=== PATIENT | female | born 1960 | race Caucasian/White ===

== ENCOUNTER 2017-05-14 06:58 | Day surgery (SDC) | payer BC ==
[~2017-05-14 06:58] MED LIST: Sodium Chloride 0.9% 10 ML Syringe FLUSH PRN
[2017-05-14] MEDS ORDERED: HYDROmorphone 2 MG/ML SDV IV ONE (08:00)
[2017-05-14] MEDS ORDERED: Propofol 200 MG/20 ML SDV IV ONE (08:00)
[2017-05-14] MEDS ORDERED: ePHEDrine/Normal Saline 50 MG/5 ML Syringe IV ONE (08:00)
[2017-05-14] MEDS ORDERED: Sugammadex Sodium 200 MG/2 ML VIAL IV ONE (08:00)
[2017-05-14] MEDS ORDERED: Dexamethasone 4 MG/ML 5 ML MDV IVPUSH ONE (08:00)
[2017-05-14] MEDS ORDERED: Ketorolac 30 MG/ML SDV IVPUSH ONE (08:00)
[2017-05-14] MEDS ORDERED: Ondansetron 4 MG/2 ML SDV IVPUSH ONE (08:00)
[2017-05-14] MEDS ORDERED: Rocuronium 50 MG/5 ML Vial IV ONE (08:00)
[2017-05-14] MEDS ORDERED: Scopolamine 1.5 MG Transdermal Patch TOP ONE (08:00)
[2017-05-14] MEDS ORDERED: fentaNYL 100 MCG/2 ML SDV IV ONE (08:00)
[2017-05-14] MEDS ORDERED: Succinylcholine/Normal Saline 200 MG/10 ML Syringe IV ONE (08:00)
[2017-05-14] MEDS ORDERED: Midazolam 1 MG/ML 2 ML SDV IV ONE (08:00)
[2017-05-14] MEDS ORDERED: Lactated Ringers 1,000 ML IV ONE (08:00)
[2017-05-14] MEDS: Lactated Ringers 1,000 ML IV SCH ×2 (08:02→10:09)
--- NOTE | 2017-05-14 08:20 | PCM.HPR ---
H & P Addendum review - H & P Addendum Review Date of Original H & P: 05/11/17 Date Reviewed: 05/14/17 Time Reviewed: 08:00 Patient was examined: No Changes (ok to proceed with lap rizwan)
--- NOTE | 2017-05-14 09:03 | PCM.OPNOTE ---
- General Post-Op/Procedure Note Date of Surgery/Procedure: 05/14/17 Operative Procedure(s): Lap Kristie Findings: none Pre Op Diagnosis: Symptomatic Cholelithiasis Post-Op Diagnosis: same Anesthesia Technique: General ET tube Primary Surgeon: Matt Torres Anesthesia Provider: Levon Mejía Pathology: Gallbladder EBL in mLs: 1 Complications: None Condition: Good
[2017-05-14] MEDS ORDERED: Morphine 2 MG/ML Syringe IVPUSH PRN (09:06)
[2017-05-14] MEDS ORDERED: Acetaminophen/HYDROcodone 325-5 MG Tab PO PRN (09:06)
[2017-05-14] MEDS ORDERED: Promethazine 6.25 MG in Sodium Chloride 0.9% 50 ML IV PRN (09:12)
[2017-05-14] MEDS ORDERED: HYDROmorphone 2 MG/ML SDV IVPUSH PRN (09:12)
[2017-05-14] MEDS ORDERED: fentaNYL 100 MCG/2 ML SDV IVPUSH PRN (09:12)
[2017-05-14 10:58] VITALS: BP 115/70
--- NOTE | 2017-05-14 13:54 | OR ---
DATE OF OPERATION: 05/14/2017 SURGEON: Matt Torres MD PREOPERATIVE DIAGNOSIS: Symptomatic cholelithiasis. POSTOPERATIVE DIAGNOSIS: Symptomatic cholelithiasis. OPERATION PERFORMED: Laparoscopic cholecystectomy. CHIEF LOAD DISPATCHER: None. ANESTHESIA: General. PROCEDURE: The patient was brought to the operating room, where general endotracheal anesthesia was administered. The abdomen was prepped with ChloraPrep and draped sterilely. An infraumbilical incision was made and extended into the peritoneal cavity without difficulty. The Yaritza cannulator was introduced and a pneumoperitoneum obtained. The remaining three 5-mm ports were placed in the usual positions. General exploration revealed the surface of the liver, stomach, omentum, bowel, and peritoneal surfaces to be normal. The gallbladder was grasped and retracted cephalad. The cystic artery and cystic duct were clearly dissected free. Minimal oozing occurred during the dissection. The cystic artery was doubly clipped proximally and once distally and then transected. The anatomy of the cystic duct was reconfirmed and could be seen entering the gallbladder and extending towards the common bile duct. This was doubly clipped proximally and once distally and then transected. The gallbladder was then removed from the bed of the liver without difficulty. No bile leakage occurred. The gallbladder was brought out through the umbilical incision. The right upper quadrant was irrigated and inspected, return was clear, and hemostasis was assured. Ports were removed under direct vision and remained hemostatic. The umbilical fascia was closed with [id number] #0 Vicryl. The skin was closed with #4-0 Vicryl subcuticular sutures. Benzoin and Steri-Strips were placed and Band-Aids applied. The patient tolerated the procedure well. Estimated blood loss was 1 mL. The patient returned to postanesthesia in stable condition. /[id number] LIANG/JARVIS
== END 2017-05-14 11:50 | disposition home or self-care (01) ==
LOC: FB.SDS 06:58
PROVIDERS: ATTEND Surgery
PROC: 0FT44ZZ Resection of Gallbladder, Percutaneous Endoscopic Approach (ICD-10-PCS; principal; 2017-05-14)
DX: K80.10 Calculus of gallbladder with chronic cholecystitis without obstruction (principal); Z90.710 Acquired absence of both cervix and uterus; Z90.722 Acquired absence of ovaries, bilateral; Z90.79 Acquired absence of other genital organ(s); E03.9 Hypothyroidism, unspecified; Z79.899 Other long term (current) drug therapy; M81.0 Age-related osteoporosis without current pathological fracture; E78.5 Hyperlipidemia, unspecified; Z88.5 Allergy status to narcotic agent; Z91.040 Latex allergy status; Z91.09 Other allergy status, other than to drugs and biological substances; Z87.891 Personal history of nicotine dependence
CPT/HCPCS: 47562; 88304; A9270; J1100; J1170; J1885; J2250; J2270; J2405; J2704; J3010; J7120

== ENCOUNTER 2020-10-11 10:45 | Emergency (ER) | payer BC ==
[2020-10-11 11:28] VITALS: BP 117/59; PULSE 84
--- NOTE | 2020-10-11 11:40 | EDM.PDOC ---
ED HPI GENERAL MEDICAL PROBLEM - General Chief Complaint: Respiratory Problem Stated Complaint: COVID Time Seen by Provider: 10/11/20 10:50 Source of Information: Reports: Patient History Limitations: Reports: No Limitations - History of Present Illness INITIAL COMMENTS - FREE TEXT/NARRATIVE: Patient presented to the ED because of dyspnea. She was diagnosed with COVID-19 5 days ago. She also c/o cough that is non- productive. There is no N/V/D. No fever, chills, or body malaise. - Related Data Allergies Allergy/AdvReac Type Severity Reaction Status Date / Time Latex, Natural Rubber Allergy UNKNOWN Verified 05/11/17 14:32 oxycodone Allergy Nausea and Verified 05/14/17 07:16 Vomiting Home Meds: Home Meds Carboxymethylcellulose Sodium [Refresh Tears 0.5%] 1 drop EYEBOTH ASDIRECTED PRN 05/11/17 [History] Cholecalciferol (Vitamin D3) [Vitamin D3] 1,000 units PO DAILY 05/11/17 [History] Fexofenadine/Pseudoephedrine [Janine-D 12 Hour] 1 tab PO Q12HR PRN 05/11/17 [History] L.acidoph,Paracasei, B.lactis [Probiotic] 1 each PO DAILY 05/11/17 [History] Levothyroxine Sodium [Synthroid] 112 mcg PO ACBREAKFAST 05/11/17 [History] Multivitamin [Multi-Day Vitamins] 1 each PO DAILY 05/11/17 [History] Olopatadine HCl [Pazeo] 1 drop EYEBOTH DAILY 05/11/17 [History] Ranitidine [Zantac] 150 mg PO BID PRN 05/11/17 [History] SUMAtriptan [Imitrex] 50 mg PO ASDIRECTED 05/11/17 [History] Triamcinolone Acetonide [Nasacort] 2 spray NS DAILY PRN 05/11/17 [History] Azithromycin 250 mg PO DAILY 10/11/20 [History] Budesonide/Formoterol Fumarate [Budesonide-Formoterol 160-4.5] 2 inh INH Q4H 10/11/20 [History] predniSONE [Prednisone] 0 mg PO ASDIRECTED 10/11/20 [History] Past Medical History HEENT History: Reports: Allergic Rhinitis Cardiovascular History: Reports: High Cholesterol Gastrointestinal History: Reports: Other (See Below) Other Gastrointestinal History: GASTRIC ULCER 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 History: Reports: Polycystic Ovaries, Musculoskeletal History: Reports: Osteoarthritis, Other (See Below) Other Musculoskeletal History: HIP BURSITIS Neurological History: Reports: Migraines Endocrine/Metabolic History: Reports: Hypothyroidism, Obesity/BMI 30+ - Past Surgical History HEENT Surgical History: Reports: Naso-Sinus Surgery GI Surgical History: Reports: Colonoscopy, EGD Female Surgical History: Reports: Breast Reconstruction, Section, Hysterectomy, Oophorectomy Musculoskeletal Surgical History: Reports: Shoulder Surgery, Other (See Below) Other Musculoskeletal Surgeries/Procedures:: WRIST AND THUMB SURGERY ED ROS GENERAL - Review of Systems Review Of Systems: See Below Constitutional: Reports: No Symptoms HEENT: Reports: No Symptoms Respiratory: Reports: Shortness of Breath, Cough Cardiovascular: Reports: No Symptoms Endocrine: Reports: No Symptoms GI/Abdominal: Reports: No Symptoms : Reports: No Symptoms Musculoskeletal: Reports: No Symptoms Skin: Reports: No Symptoms ED EXAM, GENERAL - Physical Exam Exam: See Below Exam Limited By: No Limitations General Appearance: Alert, No Apparent Distress Ears: Normal External Exam, Normal Canal Nose: Normal Inspection, Normal Mucosa, No Blood Throat/Mouth: Normal Inspection, Normal Lips, Normal Teeth, Normal Gums Head: Atraumatic, Normocephalic Neck: Normal Inspection, Supple, Non-Tender, Full Range of Motion Respiratory/Chest: No Respiratory Distress, Lungs Clear, Normal Breath Sounds Cardiovascular: Normal Peripheral Pulses, Regular Rate, Rhythm, No Edema, No Gallop, No JVD, No Murmur GI/Abdominal: Normal Bowel Sounds, Soft, Non-Tender, No Organomegaly Back Exam: Normal Inspection Course - Vital Signs Text/Narrative:: Lab/ CXR result was discussed with patient Last Recorded V/S: Last Vital Signs Temp 37.0 C 10/11/20 10:45 Pulse 84 10/11/20 10:45 Resp 20 10/11/20 10:45 BP 117/59 L 10/11/20 10:45 Pulse Ox 87 L 10/11/20 10:45 - Orders/Labs/Meds Orders: Active Orders 24 hr Category Date Time Status Chest 1V Frontal [CR] Stat Exams 10/11/20 10:56 Taken Labs: Laboratory Tests 11/23/20 11/23/20 11/23/20 Range/Units 11:25 11:25 11:25 WBC 8.0 (3.0-10.3) x10-3/uL RBC 4.09 (3.60-5.20) x10(6)uL Hgb 13.0 (11.4-15.5) g/dL Hct 39.2 (34.2-48.2) % MCV 95.8 (76.7-100.5) fL MCH 31.7 (23.9-33.9) pg MCHC 33.1 (31.9-34.8) g/dL RDW 12.9 (12.3-16.5) % Plt Count 295 (151-488) x10(3)uL MPV 7.4 (7.1-12.4) fL Neut % (Auto) 71.4 (30.8-76.2) % Lymph % (Auto) 13.4 L (18.4-52.1) % Travis % (Auto) 14.9 (4.4-15.7) % Eos % (Auto) 0.0 L (0.6-8.1) % Baso % (Auto) 0.3 (0.2-1.5) % Neut # (Auto) 5.7 (1.5-6.3) x10-3/uL Lymph # (Auto) 1.1 (1.0-4.4) x10-3/uL Travis # (Auto) 1.2 H (0.3-1.0) x10-3/uL Eos # (Auto) 0.0 (0.0-0.8) x10-3/uL Baso # (Auto) 0.0 (0.0-0.1) x10-3/uL Sodium 138 (135-145) mmol/L Potassium 4.1 (3.5-5.3) mmol/L Chloride 103 (100-110) mmol/L Carbon Dioxide 26 (21-32) mmol/L BUN 17 (7-18) mg/dL Creatinine 0.8 (0.55-1.02) mg/dL Est Cr Clr Drug Dosing 62.96 mL/min Estimated GFR (MDRD) > 60 (>60) BUN/Creatinine Ratio 21.3 H (9-20) Glucose 93 (80-116) mg/dL Calcium 7.9 L (8.6-10.2) mg/dL Total Bilirubin 0.7 (0.1-1.3) mg/dL AST 113 H (5-25) IU/L ALT 70 H (12-36) U/L Alkaline Phosphatase 62 (56-112) IU/L Troponin I 9.5 (4.0-60.3) pg/mL NT-Pro-B Natriuret Pep 258 H (<=125) pg/mL Total Protein 6.8 (6.0-8.0) g/dL Albumin 2.7 L (3.2-4.6) g/dL Globulin 4.1 g/dL Albumin/Globulin Ratio 0.7 Departure - Departure Time of Disposition: 12:00 Disposition: Home, Self-Care 01 Condition: Good Clinical Impression: COVID-19 - Discharge Information Instructions: COVID-19 Frequently Asked Questions Referrals: PCP,None [Ordering Only Provider] - Forms: ED Department Discharge Additional Instructions: Please read discharge instructions on Covid 19 infection Increase oral fluids at lwast 2-3 liters a day Take ibuprofen 800 mg with tylenol 1000 mg every 8 hours as needed for pain/fever/body ache Take 1 tablet each daily of Vitamin C-500 mg, D-2000 Units, and Zinc-50 mg Use your oxygen at 2-4 liter/min whenever you're short of breath Continue all your other meds and inhalers Follow up as needed Sepsis Event Note (ED) - Evaluation Sepsis Screening Result: No Definite Risk - Focused Exam Vital Signs: Vital Signs Temp Pulse Resp BP Pulse Ox 10/11/20 10:45 37.0 C 84 20 117/59 L 87 L - My Orders Last 24 Hours: My Active Orders 10/11/20 10:56 Chest 1V Frontal [CR] Stat - Assessment/Plan Last 24 Hours: My Active Orders 10/11/20 10:56 Chest 1V Frontal [CR] Stat
--- NOTE | 2020-10-12 06:55 | CR ---
INDICATION: Dyspnea. CHEST ONE VIEW: AP upright portable view of the chest 10/11/20 was compared with 01/27/19 and 07/27/14. The heart appears somewhat enlarged, but is emphasized by the AP positioning. The aorta is tortuous. Overlying EKG leads are noted. Pulmonary vasculature is somewhat prominent in appearance and indistinct suggesting the possibility of CHF. Interstitial markings are heavy suggesting interstitial lung edema. There may also be some patchy alveolar infiltration in the mid to lower lung romero. This may be on the basis of acute pulmonary edema or possibly pneumonia. This should be correlated clinically. Exogenous obesity is noted. IMPRESSION: 1. Probable ASHD with likely CHF and interstitial lung edema. 2. Cannot exclude acute pulmonary edema or possibly bilateral pneumonia in the mid to lower lung romero - no definite pleural effusion seen. 3. Exogenous obesity. MTDD
== END 2020-10-11 14:30 | disposition home or self-care (01) ==
LOC: FB.ED 10:45
DX: U07.1 COVID-19 (principal); E03.9 Hypothyroidism, unspecified; E66.9 Obesity, unspecified; Z68.36 Body mass index [BMI] 36.0-36.9, adult; Z91.040 Latex allergy status; Z88.5 Allergy status to narcotic agent; Z79.899 Other long term (current) drug therapy
CPT/HCPCS: 36415; 71045; 80053; 83880; 84484; 85025; 99284; 99285-25